=== PATIENT | male | born 1950 | race Caucasian/White ===

== ENCOUNTER 2022-05-23 17:01 | Emergency (ER) | payer OTHER, SELFPAY ==
[2022-05-23] VITALS (14 sets, daily range): BP systolic 113–163; BP diastolic 73–86; PULSE 63–101; RESP 12–32; TEMP 36.3; O2SAT 92–100
--- NOTE | ~2022-05-23 | XR_ITS ---
XR chest 2V DATE: 05/23/2022 19:31 INDICATION: Chills, weakness. TECHNIQUE: PA and lateral views COMPARISON: None FINDINGS: Status post sternotomy. Normal heart size. Mild aortic calcification. Right sided Port-A-Cath catheter tip overlies the superior vena cava. No pulmonary infiltrate or consolidation, pleural effusion or pulmonary vascular congestion or pneumo thorax. Degenerative spurring of the thoracic spine. Osteopenia. IMPRESSION: Status post sternotomy; no active cardiopulmonary disease Right Port-A-Cath catheter in superior vena cava Reviewed, dictated and finalized at location A. AR WORKER
--- NOTE | 2022-05-23 19:06 | ECG_ITS ---
Measurements Intervals [place] Rate: 87 P: 57 OR: 181 QRS: 51 QRSD: 90 T: 11 QT: 332 QTc: 401 Interpretive Statements SINUS RHYTHM POSSIBLE LEFT ATRIAL ENLARGEMENT CONSIDER INFERIOR INFARCT, AGE INDETERMINATE BASELINE ARTIFACT- I, II, III, AVR, AVL, AVF, V5-V6 ABNORMAL ECG NO PREVIOUS ECG AVAILABLE FOR COMPARISON Electronically Signed On 05-23-2022 19:47:24 BREWING TECHNICIAN by Juan Luis Thompson D.O.
[2022-05-23 19:32] LABS: Appearance Urine Clear (Clear); Basophils Absolute Auto 0.1 K/mm3 (0.0-0.1); Basophils Percent Auto 0.4 % (0.2-1.2); Bilirubin Urine Negative (Negative); Blood Urine 1+ (Negative); Color Urine Yellow (Yellow); Eosinophils Percent Auto 0.2 % (0-4.4); Glucose Urine UA Negative (Negative); Hematocrit 45.8 % (42.0-52.0); Immature Granulocyte Absolute 0.35 K/mm3 (0.00-0.031); Immature Granulocyte Percent A 2.1 % (0-0.5); Ketones Urine Negative (Negative); Leukocyte Esterase Ur Negative LEU/UL (Negative); Lymphocytes Absolute Auto 0.53 K/mm3 (0.9-3.2); Lymphocytes Percent Auto 3.2 % (18.3-44.2); Mean Corpuscular HGB Conc 32.8 g/dl (32-36); Mean Corpuscular Hemoglobin 29.8 pg (26-34); Mean Corpuscular Volume 90.9 fl (80-100); Mean Platelet Volume 10.2 fl (7.4-10.4); Monocytes Percent Auto 6.3 % (2.6-8.5); Neutrophils Absolute Auto 14.5 K/mm3 (1.3-6.7); Neutrophils Percent Auto 87.8 % (45.5-73.1); Nitrate Urine Negative (Negative); Platelet Count Result 218 k/mm3 (150-375); Protein Urine Negative (Negative); Red Blood Count 5.04 M/mm3 (4.6-6.20); Red Cell Distribution Width 12.2 % (11.5-14.5); Urobilinogen Urine 0.2 mg/dL (<2.0); White Blood Count 16.5 K/mm3 (4.5-10.0)
[2022-05-23 19:40] LABS: Bacteria Urine Trace /hpf; Mucus Urine Moderate /lpf
[2022-05-23 19:42] LABS: Lactic Acid Reflex 1.8 mmol/L (0.7-2.0)
[2022-05-23 19:48] LABS: Alanine Aminotransferase 28 U/L (6-50); Albumin Level 4.4 g/dL (3.5-5.1); Alkaline Phosphatase 53 U/L (38-126); Anion Gap 11 mmol/L (8-16); Aspartate Amino Transferase 27 U/L (17-59); Bilirubin,Total 0.8 mg/dL (0.2-1.3); Blood Urea Nitrogen 19 mg/dL (9-20); Calcium 8.5 mg/dL (8.4-10.2); Carbon Dioxide 21 mmol/L (22-30); Chloride 99 mmol/L (98-107); Estimated CRCL calculation 40 ml/min; Estimated Glomerular Filt Rate 46; Glucose 119 mg/dL (65-110); Potassium 4.6 mmol/L (3.4-5.0); Sodium 131 mmol/L (137-145)
[2022-05-23 19:56] LABS: Add Urine Microscopic? YES
--- NOTE | 2022-05-23 20:01 | ED.FEVER ---
HPI - Fever General Chief Complaint: Fever Stated Complaint: chills, I have sepsis Time Seen by Provider: 05/23/22 18:51 Source: patient and RN notes reviewed Mode of arrival: ambulatory Limitations: no limitations History of Present Illness HPI Narrative: This is a 71 year old male who presents for an evaluation of sepsis. Patient states today he was outside in the cold. When he came back inside, he was extremely cold. He took a hot bath and he felt better. He states he has had sepsis in the past and this feels similar. He also reports he had some weakness but he feels better now. Patient denies fever, cough, sob, nausea, vomiting, abdominal pain or back pain. He does intermittently self cath himself. Today he was able urinate on his own and provide urine sample. He denies dysuria. Related Data Allergies Allergy/AdvReac Type Severity Reaction Status Date / Time atorvastatin [From Lipitor] Allergy Joint Pain Verified 05/23/22 21:34 Review of Systems Review of Systems: All systems reviewed & are unremarkable except as noted in HPI and below Constitutional: Constitutional: Reports chills, Reports fatigue and Denies fever(s) ENT: Denies nasal congestion and Denies sore throat Respiratory: Respiratory: Denies chest congestion, Denies cough and Denies dyspnea Gastrointestinal: Gastrointestinal: Denies abdominal pain, Denies nausea and Denies vomiting Genitourinary: Genitourinary: Denies hematuria, Denies oliguria and Denies urinary frequency Musculoskeletal: Musculoskeletal: Denies myalgias PMFSH Past Medical History Medical History (Updated 05/23/22 @ 20:43 by Joi Whalen MD) CAD (coronary artery disease) Hypertension Surgical History Surgical History (Updated 05/23/22 @ 20:06 by Joi Whalen MD) Hx of CABG Stented coronary artery Social History Social History (Updated 05/23/22 @ 20:06 by Joi Whalen MD) Smoking status: Current every day smoker Exam Narrative: GENERAL: Well-appearing, well-nourished, and in no acute distress. HEAD: Normocephalic, atraumatic EYES: PERRLA and EOMI, conjunctiva clear without discharge EARS: TM's clear bilaterally without erythema or dullness NOSE: Nares clear, no rhinorrhea or epistaxis THROAT:Mucous membranes moist, Oropharynx normal without erythema, exudate, peritonsillar swelling or fluctuance NECK: Supple, without lymphadenopathy or mass RESPIRATORY: No respiratory distress, Airway patent, Respirations non-labored, Clear to auscultation without rales, rhonchi or wheeze HEART: Regular rate and rhythm. No murmur heard. Normal peripheral pulses. ABDOMEN: Soft, nontender, nondistended, normal active bowel sounds. No masses. No rebound or guarding, No organomegaly. EXTREMITIES: No edema, normal strength with full range of motion. SKIN: Warm, dry, normal color without rash NEURO: Alert and oriented x3. CN 2-12 grossly intact. No focal deficits. PSYCH: Normal mood and affect. Course Reevaluation(s) Reevaluation #1: I Discussed with patient that I have not found source of an infection. He denies abdominal pain, back pain, his abdominal exam is normal. I Discussed leukocytosis. Vitals are stable. He will follow up with PCP . he is well appearing without any specific complaints of findings. Date: 05/23/22 Time: 20:41 Vital Signs Vital signs: Vital Signs Temperature 97.4 F L 05/23/22 17:08 Pulse Rate 101 H 05/23/22 17:08 Respiratory Rate 16 05/23/22 17:08 Blood Pressure 163/79 H 05/23/22 17:08 Pulse Oximetry 100 05/23/22 17:08 Oxygen Delivery Room Air 05/23/22 17:08 Temperature 97.4 F L 05/23/22 17:08 Pulse Rate 80 05/23/22 22:09 Respiratory Rate 16 05/23/22 22:09 Blood Pressure 122/75 05/23/22 22:09 Pulse Oximetry 98 05/23/22 22:09 Oxygen Delivery Room Air 05/23/22 17:08 MDM - Fever Lab Data Attestation: I reviewed the patient's lab results. Result diagrams: 05/23/22 19:23
[2022-05-23 20:09] LABS: Influenza A QL RT-PCR Negative (Negative); Influenza B QL RT-PCR Negative (Negative); SARS-CoV-2 RNA PCR Negative
--- NOTE | 2022-05-25 14:43 | PC.NURSE ---
Pt notified that he had positive blood cultures and pt would like to come here and be seen. Will head this direction.
== END 2022-05-23 22:10 | disposition home or self-care (01) ==
PROVIDERS: Emergency Provider General Practice
DX: D72.829 Elevated white blood cell count, unspecified (principal); I25.10 Atherosclerotic heart disease of native coronary artery without angina pectoris; I10 Essential (primary) hypertension; Z95.1 Presence of aortocoronary bypass graft; F17.200 Nicotine dependence, unspecified, uncomplicated; Z20.822 Contact with and (suspected) exposure to COVID-19
CPT/HCPCS: 36415; 71046; 80053; 81001; 83605; 85025; 87040; 87086; 87147; 87181; 87186; 87636; 93005; 96365; 99284; J0696

== ENCOUNTER 2022-05-25 15:11 | Emergency (ER) | payer OTHER, SELFPAY ==
[2022-05-25 15:15] VITALS: BP 145/66; PULSE 74; RESP 18; TEMP 37.1; O2SAT 99
[2022-05-25 15:41] LABS: Basophils Absolute Auto 0.1 K/mm3 (0.0-0.1); Basophils Percent Auto 0.6 % (0.2-1.2); Eosinophils Absolute Auto 0.1 K/mm3 (0-0.3); Eosinophils Percent Auto 1.2 % (0-4.4); Hematocrit 44.2 % (42.0-52.0); Hemoglobin 14.3 g/dL (14.0-18.0); Immature Granulocyte Percent A 2.3 % (0-0.5); Lymphocytes Absolute Auto 1.45 K/mm3 (0.9-3.2); Mean Corpuscular HGB Conc 32.4 g/dl (32-36); Mean Corpuscular Hemoglobin 29.7 pg (26-34); Mean Corpuscular Volume 91.7 fl (80-100); Mean Platelet Volume 10.2 fl (7.4-10.4); Monocytes Absolute Auto 1.2 K/mm3 (0.1-0.6); Monocytes Percent Auto 14.5 % (2.6-8.5); Neutrophils Absolute Auto 5.5 K/mm3 (1.3-6.7); Neutrophils Percent Auto 64.4 % (45.5-73.1); Platelet Count Result 224 k/mm3 (150-375); Red Blood Count 4.82 M/mm3 (4.6-6.20); Red Cell Distribution Width 12.6 % (11.5-14.5); White Blood Count 8.5 K/mm3 (4.5-10.0)
[2022-05-25 15:57] LABS: Alanine Aminotransferase 27 U/L (6-50); Albumin Level 4.3 g/dL (3.5-5.1); Alkaline Phosphatase 51 U/L (38-126); Anion Gap 12 mmol/L (8-16); Aspartate Amino Transferase 26 U/L (17-59); Bilirubin,Total 0.8 mg/dL (0.2-1.3); Blood Urea Nitrogen 21 mg/dL (9-20); Calcium 8.7 mg/dL (8.4-10.2); Carbon Dioxide 29 mmol/L (22-30); Chloride 95 mmol/L (98-107); Estimated CRCL calculation 45 ml/min; Estimated Glomerular Filt Rate 54; Glucose 120 mg/dL (65-110); Potassium 4.4 mmol/L (3.4-5.0); Sodium 136 mmol/L (137-145)
--- NOTE | 2022-05-25 18:18 | ED.GENADULT ---
HPI - General Adult General Chief complaint: Unspecified Stated complaint: here for antibiotics Time Seen by Provider: 05/25/22 18:08 History of Present Illness HPI narrative: Pt returns to ER after positive blood culture strep veridians on blood drawn 05/23. Pt given dose of IV rocephin then. Pt had fever and chills. Pt says he feels quite a bit better and no longer has fever or chills. Pt feels a little weak. 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 Related Data Allergies Allergy/AdvReac Type Severity Reaction Status Date / Time atorvastatin [From Lipitor] Allergy Joint Pain Verified 05/25/22 18:24 Review of Systems Review of Systems: All systems reviewed & are unremarkable except as noted in HPI and below PMFSH Past Medical History Medical History (Updated 05/25/22 @ 19:04 by Casimiro Flower III, DO) CAD (coronary artery disease) Hypertension Surgical History Surgical History (Updated 05/23/22 @ 20:06 by Joi Whalen MD) Hx of CABG Stented coronary artery Social History Social History (Updated 05/23/22 @ 20:06 by Joi Whalen MD) Smoking status: Current every day smoker Exam Const: General: cooperative, healthy appearing and no acute distress Orientation/consciousness: patient oriented x3 Limitations: no limitations HENMT: Head: normal to inspection Throat: posterior oropharynx normal Eyes: Conjunctivae: conjunctivae normal Neck: Neck: normal visual inspection Chest: Chest palpation & inspection: normal inspection of the chest Breast/axilla inspection: normal inspection of the breasts Resp: Effort & Inspection: normal respiratory effort Auscultation: clear to auscultation bilaterally Cardio: Rate: regular rate Rhythm: regular rhythm GI: Inspection: normal to inspection Percussion: Yes normal to percussion Auscultation: normal bowel sounds Back/Spine/Pelvis: Back: no CVA tenderness Skin: General skin exam: normal color and no rashes or lesions noted Rashes: no rashes Neuro: General: patient oriented x3 Cranial nerves: Yes CN's II-XII intact bilaterally and Yes Nystagmus not present Cognition (Neuro): normal cognition Speech: normal speech Motor exam (neuro): 5/5 motor strength present throughout Sensory Exam: normal sensation Extrem: General: normal to inspection and full ROM Psych: Appearance: grossly normal Mental Status: mental status grossly normal Speech and movement: Normal speech and movement present Affect: normal affect Attitude: cooperative Course Vital Signs Vital signs: Vital Signs Temperature 98.7 F 05/25/22 15:15 Pulse Rate 74 05/25/22 15:15 Respiratory Rate 18 05/25/22 15:15 Blood Pressure 145/66 H 05/25/22 15:15 Pulse Oximetry 99 05/25/22 15:15 Oxygen Delivery Room Air 05/25/22 15:15 Temperature 98.7 F 05/25/22 15:15 Pulse Rate 61 05/25/22 19:30 Respiratory Rate 18 05/25/22 19:30 Blood Pressure 141/69 H 05/25/22 19:30 Pulse Oximetry 97 05/25/22 19:30 Oxygen Delivery Room Air 05/25/22 15:15 Medical Decision Making Vital Signs Vital Signs: Vital Signs Temperature 98.7 F 05/25/22 15:15 Pulse Rate 74 05/25/22 15:15 Respiratory Rate 18 05/25/22 15:15 Blood Pressure 145/66 H 05/25/22 15:15 Pulse Oximetry 99 05/25/22 15:15 Oxygen Delivery Room Air 05/25/22 15:15 Temperature 98.7 F 05/25/22 15:15 Pulse Rate 61 05/25/22 19:30 Respiratory Rate 18 05/25/22 19:30 Blood Pressure 141/69 H 05/25/22 19:30 Pulse Oximetry 97 05/25/22 19:30 Oxygen Delivery Room Air 05/25/22 15:15 Lab Data Result diagrams: 05/25/22 15:27 05/25/22 15:27 Labs: Lab Results 05/25/22 05/25/22 Range/Units 15:27 15:27 WBC 8.5 (4.5-10.0) K/mm3 RBC 4.82 (4.6-6.20) M/mm3 Hgb 14.3 (14.0-18.0) g/dL Hct 44.2 (42.0-52.0) % MCV 91.7 (80-100) fl MCH 29.7 (26-34) pg MCHC 32.4 (32-36) g
[2022-05-25 18:20] VITALS: RESP 18; O2SAT 100
[2022-05-25 18:23] VITALS: BP 149/72; PULSE 60; RESP 18; O2SAT 100
[2022-05-25] MEDS: cefTRIAXone 2 GM in SODIUM CHLORIDE 0.9% IV 100 ML 200 ML IVPB (18:42)
[2022-05-25 19:30] VITALS: BP 141/69; PULSE 61; RESP 18; O2SAT 97
== END 2022-05-25 19:48 | disposition home or self-care (01) ==
LOC: ANHED 19:16
PROVIDERS: Emergency Medicine; Emergency Provider Emergency Medicine
DX: R78.81 Bacteremia (principal); I25.10 Atherosclerotic heart disease of native coronary artery without angina pectoris; I10 Essential (primary) hypertension; Z95.1 Presence of aortocoronary bypass graft; Z95.5 Presence of coronary angioplasty implant and graft; F17.200 Nicotine dependence, unspecified, uncomplicated; Z92.21 Personal history of antineoplastic chemotherapy
CPT/HCPCS: 36415; 80053; 85025; 96365; 99284; J0696